=== PATIENT | female | born 1985 | race Caucasian/White ===

== ENCOUNTER 2018-02-03 13:42 | Inpatient (IN) | payer BC ==
[2018-02-03] MEDS ORDERED: XYLOCAINE 1% HCL 20 ML MDV IJ PRN (15:10)
[2018-02-03] MEDS ORDERED: Lactated Ringers 1,000 ML IV ONE (15:15)
[2018-02-03] MEDS ORDERED: Ephedrine Sulfate 50 MG/ML IV PRN (15:15)
[2018-02-03] MEDS ORDERED: PITOCIN 30 UNITS/ LR 500 ML 500 ML IV SCH ×2 (15:30→19:30)
[2018-02-03 15:59] LABS: BASOPHIL % 0.1 % (0.0-0.4); Basophil (Absolute #) 0.01 (0-0.4); Eosinophil (Absolute #) 0.11 (0-0.5); Granulocyte Absolute (ANC) 7.55 (1.4-6.9); Granulocytes % 67.8 % (36.0-66.0); Hematocrit 37.5 % (35-47); Hemoglobin 12.7 gm/dl (12.0-16.0); Lymphocyte (Absolute #) 2.53 (1.0-4.6); Lymphocytes % 22.8 % (24.0-44.0); Mean Cell Volume 95.2 fl (78-100); Mean Corpuscular Hemoglobin 32.2 pg (26-32); Mean Corpuscular Hgb Concent. 33.9 g/dl (32-36); Mean Platelet Volume 10.6 fl (6-9.5); Monocyte (Absolute #) 0.92 (0.0-1.3); Monocytes % 8.3 % (0.0-12.0); Platelet Count 179 K/mm3 (150-450); Red Blood Count 3.94 M/mm3 (4.1-5.4); Red Cell Distribution Width 13.9 % (11.5-14.0); White Blood Count 11.1 K/mm3 (4.0-10.5)
[2018-02-03 16:22] LABS: Amphetamine,Urine NEGATIVE (NEGATIVE); Barbiturate,Urine NEGATIVE (NEGATIVE); Benzodiazepine,Urine NEGATIVE (NEGATIVE); Cocaine,Urine NEGATIVE (NEGATIVE); Methadone,Urine NEGATIVE (NEGATIVE); Opiate,Urine NEGATIVE (NEGATIVE); PCP,Urine NEGATIVE (NEGATIVE); THC,Urine NEGATIVE (NEGATIVE)
[2018-02-03] MEDS: Lactated Ringers 1,000 ML IV SCH ×2 (16:51→19:44)
[2018-02-03] MEDS: OB EPIDURAL NAROPIN/SUFENTANIL IN NACL EPIDURAL PRN (18:05)
[2018-02-03] MEDS ORDERED: BRETHINE 1 MG/ML SQ PRN (19:29)
[2018-02-03] MEDS: Zofran 4 MG/2 ML VIAL IV PRN ×2 (19:34→23:29)
[2018-02-03 22:25] VITALS: O2SAT 98
[2018-02-04] MEDS: Lactated Ringers 1,000 ML IV SCH ×3 (01:41→10:30)
[2018-02-04] MEDS ORDERED: Phenergan 25 MG INJ IV PRN (02:55)
[2018-02-04] MEDS: OB EPIDURAL NAROPIN/SUFENTANIL IN NACL EPIDURAL PRN (03:26)
[2018-02-04] MEDS: Zofran 4 MG/2 ML VIAL IV PRN ×2 (07:52→12:25)
[2018-02-04] MEDS ORDERED: NORCO 5/325 MG PO PRN (13:43)
[2018-02-04] MEDS ORDERED: Dulcolax 10 MG SUPP PR PRN (13:43)
[2018-02-04] MEDS ORDERED: CORTISONE 1% CREAM TP PRN (13:43)
[2018-02-04] MEDS ORDERED: LANSINOH 40 GM TOP PRN (13:43)
[2018-02-04] MEDS ORDERED: Anucort-HC SUPPOSITORY PR PRN (13:43)
[2018-02-04] MEDS ORDERED: Mylicon 80MG PO PRN (13:43)
[2018-02-04] MEDS: TUCKS TP PRN (15:35)
[2018-02-04] MEDS: Dermoplast Spray TP PRN (15:36)
[2018-02-04] MEDS: MOTRIN 400 MG PO PRN (20:19)
[2018-02-04] MEDS: Colace 100 MG PO SCH (21:51)
[2018-02-04] MEDS: TYLENOL EXTRA STRENGTH 500 MG PO PRN (23:57)
[2018-02-05] MEDS: MOTRIN 400 MG PO PRN ×3 (03:09→18:26)
[2018-02-05 05:36] LABS: BASOPHIL % 0.1 % (0.0-0.4); Basophil (Absolute #) 0.01 (0-0.4); Eosinophil % 1.1 % (0.00-5.0); Eosinophil (Absolute #) 0.13 (0-0.5); Granulocyte Absolute (ANC) 7.78 (1.4-6.9); Granulocytes % 65.8 % (36.0-66.0); Hematocrit 34.4 % (35-47); Hemoglobin 11.6 gm/dl (12.0-16.0); Lymphocytes % 25.4 % (24.0-44.0); Mean Cell Volume 96.6 fl (78-100); Mean Corpuscular Hgb Concent. 33.7 g/dl (32-36); Monocytes % 7.6 % (0.0-12.0); Platelet Count 181 K/mm3 (150-450); Red Blood Count 3.56 M/mm3 (4.1-5.4); Red Cell Distribution Width 13.8 % (11.5-14.0); White Blood Count 11.8 K/mm3 (4.0-10.5)
[2018-02-05 05:52] LABS: Mean Corpuscular Hemoglobin 32.5 pg (26-32)
[2018-02-05] MEDS: TYLENOL EXTRA STRENGTH 500 MG PO PRN ×3 (06:45→21:21)
[2018-02-05] MEDS: Colace 100 MG PO SCH ×2 (10:39→21:22)
[2018-02-05] MEDS: FERREX 150 PO SCH (10:39)
[2018-02-06] MEDS: MOTRIN 400 MG PO PRN ×3 (01:47→14:20)
[2018-02-06] MEDS: TYLENOL EXTRA STRENGTH 500 MG PO PRN ×2 (04:04→10:25)
[2018-02-06] MEDS: Dermoplast Spray TP PRN (06:36)
[2018-02-06] MEDS: TUCKS TP PRN (06:37)
--- NOTE | 2018-02-06 08:08 | PCM.DS ---
Discharge Summary Date of Admission: 02/03/18 13:42 Admitting Physician: LESLIE FERANNDEZ Primary Care Provider: LESLIE FERNANDEZ Allergies Allergies sulfamethoxazole [From Bactrim] Adverse Reaction (Verified 02/03/18 14:18) Nausea and Vomiting trimethoprim [From Bactrim] Adverse Reaction (Verified 02/03/18 14:18) Nausea and Vomiting Hospital Summary - Hospital Course Hospital Course: patient arrived in spontaneous labor at 39+wks, progressed to full dilation. delivered a viable 11lbs 1oz female vertex, mom with second degree perineal laceration repair. has done well , with no problems or concerns. - Vitals & Intake/Output Vital Signs: Vital Signs Temperature 98.4 F 02/06/18 02:00 Pulse Rate 87 02/06/18 02:00 Respiratory Rate 18 02/05/18 14:00 Blood Pressure 131/67 02/06/18 02:00 O2 Sat by Pulse Oximetry 98 02/03/18 22:00 Intake & Output: Intake & Output 02/03/18 02/04/18 02/05/18 02/06/18 11:59 11:59 11:59 11:59 Intake Total 6716 2128 Output Total 2075 300 Balance 4641 1828 Weight 108.862 kg - Lab Result Diagrams: 02/05/18 04:50 Lab Results-Last 24 Hrs: Lab Results-Last 24 Hours 02/05/18 Range/Units 04:50 Hemoglobin A1c 5.39 (4.5-6.0) % Micro Results-Entire Visit: Microbiology 02/03/18 19:35 Urine Culture - Final Catherized NO GROWTH - Procedures and Test Procedures and Tests throughout Hospitalization: Therapy Orders & Screens 02/04/18 12:40 Standby STAT Comment: Diagnosis: Term IUP Discharge Exam General Appearance: no apparent distress, alert Neurologic Exam: alert, oriented x 3, cooperative, normal mood/affect, nml cerebellar function, sensation nml, No motor deficits Skin Exam: normal color, warm, dry Respiratory Exam: normal breath sounds, lungs clear, No respiratory distress Cardiovascular Exam: regular rate/rhythm, normal heart sounds Gastrointestinal/Abdomen Exam: soft, No tenderness, No mass Extremity Exam: normal inspection, normal range of motion Final Diagnosis/Problem List - Final Discharge Diagnosis/Problem (1) Vaginal delivery Current Visit: Yes Status: Acute (2) Second degree perineal laceration Current Visit: Yes Status: Acute - Discharge Disposition: Home, Self-Care Condition: Stable Prescriptions: Continue Docusate Sodium [Colace] 1 tablet PO DAILY Pnv,Calcium 72/Iron/Folic Acid [Pnv Plus Multivit Tab] 1 tablet PO DAILY Follow up with: LESLIE FERNANDEZ MD [Primary Care Provider] - 1 Week
[2018-02-06] MEDS: FERREX 150 PO SCH (10:24)
[2018-02-06] MEDS: Colace 100 MG PO SCH (10:24)
[2018-02-06 16:44] VITALS: BP 128/74; PULSE 92
== END 2018-02-06 15:35 | disposition home or self-care (01) | DRG 807 ==
LOC: OB 13:42 → OBSVTOIN 13:42
PROVIDERS: ADMIT Family Medicine; ATTEND Family Medicine
PROC: 0KQM0ZZ Repair Perineum Muscle, Open Approach (ICD-10-PCS; principal; 2018-02-03)
PROC: 10E0XZZ Delivery of Products of Conception, External Approach (ICD-10-PCS; 2018-02-03)
PROC: 10D17Z9 Manual Extraction of Products of Conception, Retained, Via Natural or Artificial Opening (ICD-10-PCS; 2018-02-03)
DX: O70.1 Second degree perineal laceration during delivery (principal); Z37.0 Single live birth; Z3A.39 39 weeks gestation of pregnancy
CPT/HCPCS: 36415; 80307; 83036; 85025; 87086; 94799; G0378; J2405; J2550; J2590; J2795; A9270-GY